=== PATIENT | male | born 1990 | race Hispanic/Latino ===

== ENCOUNTER 2019-12-17 14:02 | Outpatient (CLI) | payer BC ==
--- NOTE | 2019-12-17 14:22 | RAD ---
EXAM: 3 views of the right wrist HISTORY: Wrist pain COMPARISON: None FINDINGS: 3 views of the right wrist shows no evidence of acute fracture or dislocation. No soft tiss ue swelling is seen. No degenerative changes are present. IMPRESSION: No evidence of acute osseous abnormality.
== END 2019-12-17 14:03 | disposition home or self-care (01) ==
LOC: BICRAD 14:02
PROVIDERS: ATTEND Family Medicine
DX: M25.531 Pain in right wrist (principal)

== ENCOUNTER 2020-02-05 07:33 | Outpatient (CLI) | payer BC ==
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
== END 2020-02-05 07:34 | disposition home or self-care (01) ==
LOC: BICMRI 07:33
PROVIDERS: ATTEND Orthopaedic Surgery Hand Surgery
DX: S69.91XA Unspecified injury of right wrist, hand and finger(s), initial encounter (principal); S63.591A Other specified sprain of right wrist, initial encounter; M67.431 Ganglion, right wrist